=== PATIENT | female | born 1990 | race Caucasian/White ===

== ENCOUNTER → 2017-10-31 22:48 | Observation (INO) ==
[2017-10-31 21:59] LABS: Bilirubin,Urine Negative (Negative); Blood,Urine Small (Negative); Clarity,Urine Cloudy (Clear); Color,Urine Yellow (Yellow); Glucose,Urine (UA) Normal (Normal); Ketones,Urine Negative (Negative); Leukocyte Esterase,Urine Negative (Negative); Nitrite,Urine Negative (Negative); Protein,Urine Trace mg/dL (Neg-Trace); Specific Gravity,Urine 1.026 (1.010-1.025); Urobilinogen,Urine Normal (Normal)
[2017-10-31 22:01] LABS: Bacteria,Urine Moderate per hpf (None-Few); Hyaline Casts,Urine None Seen per lpf (None-Few); RBC,Urine 15-30 per hpf (0-3); Squamous Epithelial Cell,Urine Many per lpf (None-Few)
[2017-10-31 22:09] LABS: Amphetamine Screen,Urine Negative ng/mL (Cutoff=1000); Barbiturate Screen,Urine Negative ng/mL (Cutoff=200); Benzodiazepines Screen,Urine Negative ng/mL (Cutoff=200); Cannabinoid Screen,Urine Negative ng/mL (Cutoff = 50); Cocaine Screen,Urine Negative ng/mL (Cutoff= 300); Opiate Screen,Urine Negative ng/mL (Cutoff=300); Phencyclidine Screen,Urine Negative ng/mL (Cutoff=25)
--- NOTE | 2017-10-31 22:44 | OB/GYN Progress Note ---
Date of Encounter: 10/31/17 Time of Encounter: 22:40 - Assessment and Plan (1) Lower abdominal pain Current Visit: Yes Status: Acute Urinalysis-Mild dehydration and contaminated FHT normal for gestational age Benign exam Discussed common discomforts of related to gestation and parity. Encouraged patient to follow up with primary OB prior to next appointment if not resolved with home remedies, including but not limited to increased water intake, warm baths, maternity support belt. Discharged home with PTL precautions (2) 23 weeks gestation of Current Visit: Yes Status: Acute Subjective - Subjective Principal diagnosis: Lower abdominal pain Interval history: at 23 weeks and 4 days presents to triage with reports lower abdominal pain. Denies fever, chills and flank pain. Denies vaginal bleeding , leaking of fluid , contractions and intercourse within the past 48 hours. She is seen by Dr. Key at [place] for her care. States her last visit was yesterday and next appointment is scheduled for end of the month. Objective - Vital Signs Vital Signs: Intake and Output 10/31/17 10/31/17 10/31/17 07:59 15:59 23:59 Other: Weight 72.4 kg Patient Weight 10/31/17 23:59 Weight 72.4 kg - Exam FHR: auscultation normal (Appropriate for gestational age, FBL 150. No contractions per monitor or palpation.) Abdomen: Present: soft, gravid, tenderness (Right round ligament and superior pubic bone.) Uterus: Present: normal (Appropriate for gestational age.) - Labs Labs: Abnormal lab results Urine Clarity Cloudy (Clear) A 10/31/17 21:54 Ur Specific [place] 1.026 (1.010-1.025) H 10/31/17 21:54 Urine Blood Small (Negative) H 10/31/17 21:54 Urine Microscopic RBC 15-30 per hpf (0-3) H 10/31/17 21:54 Urine Microscopic WBC 3-5 per hpf (0-3) H 10/31/17 21:54 Ur Squamous Epith Cells Many per lpf (None-Few) H 10/31/17 21:54 Urine Bacteria Moderate per hpf (None-Few) H 10/31/17 21:54
== END | disposition home or self-care (01) ==
LOC: 1NENULAB
PROVIDERS: ADMIT Advanced Practice Midwife; ATTEND Advanced Practice Midwife

== ENCOUNTER → 2017-12-28 18:25 | Observation (INO) ==
[2017-12-28 18:02] LABS: Bilirubin,Urine Negative (Negative); Blood,Urine Negative (Negative); Color,Urine Yellow (Yellow); Glucose,Urine (UA) Normal (Normal); Ketones,Urine Negative (Negative); Leukocyte Esterase,Urine Negative (Negative); Nitrite,Urine Negative (Negative); Protein,Urine Negative (Neg-Trace); Specific Gravity,Urine 1.026 (1.010-1.025); Urobilinogen,Urine Normal (Normal)
[2017-12-28 18:03] LABS: Clarity,Urine Slightly Hazy (Clear)
[2017-12-28 18:09] LABS: Amphetamine Screen,Urine Negative ng/mL (Cutoff=1000); Barbiturate Screen,Urine Negative ng/mL (Cutoff=200); Benzodiazepines Screen,Urine Negative ng/mL (Cutoff=200); Cannabinoid Screen,Urine Negative ng/mL (Cutoff = 50); Cocaine Screen,Urine Negative ng/mL (Cutoff= 300); Opiate Screen,Urine Negative ng/mL (Cutoff=300); Phencyclidine Screen,Urine Negative ng/mL (Cutoff=25)
--- NOTE | 2017-12-28 18:23 | Discharge Summary ---
Date of Encounter: 12/28/17 Time of Encounter: 18:22 - Discharge Diagnosis (1) 31 weeks gestation of Priority: Primary Status: Acute Comments: admitted for observation (2) NST (non-stress test) reactive on surveillance Priority: Secondary Status: Acute Comments: baseline 125 bpm moderate variability +15x15 accels no decels noted. No contractions noted. CAt. 1 tracing - Discharge Medications Allergies/Adverse Reactions: 3 Allergy/AdvReac Type Severity Reaction Status Date / Time Penicillins [PCN] Allergy Hives Verified 12/28/17 18:00 Data Procedures and tests throughout hospitalization: Laboratory Tests 12/28/17 12/28/17 17:50 17:50 Urine Color Yellow Urine Clarity Slightly Hazy Urine pH 6.0 Ur Specific [place] 1.026 H Urine Protein Negative Urine Glucose (UA) Normal Urine Ketones Negative Urine Blood Negative Urine Nitrite Negative Urine Bilirubin Negative Urine Urobilinogen Normal Ur Leukocyte Esterase Negative Ur Culture Indicated? NO Urine Opiates Screen Negative Ur Barbiturates Screen Negative Ur Phencyclidine Scrn Negative Ur Amphetamines Screen Negative U Benzodiazepines Scrn Negative Urine Cocaine Screen Negative U Marijuana (THC) Screen Negative Labs on day of discharge: Labs from last 24 hours 12/28/17 12/28/17 17:50 17:50 Urine Color Yellow Urine Clarity Slightly Hazy Urine pH 6.0 Ur Specific [place] 1.026 H Urine Protein Negative Urine Glucose (UA) Normal Urine Ketones Negative Urine Blood Negative Urine Nitrite Negative Urine Bilirubin Negative Urine Urobilinogen Normal Ur Leukocyte Esterase Negative Ur Culture Indicated? NO Urine Opiates Screen Negative Ur Barbiturates Screen Negative Ur Phencyclidine Scrn Negative Ur Amphetamines Screen Negative U Benzodiazepines Scrn Negative Urine Cocaine Screen Negative U Marijuana (THC) Screen Negative Date of admission: 12/28/17 17:45 Discharging clinician: Yoselin Peguero Anticipated date of discharge: 12/28/17 - Patient Status Disposition: Home, Self-Care Condition: Good Functional capacity at discharge: independent ambulation - Discharge Instructions Follow Up With: Deanna Key DO [Non-Partnered Physician] - - Diet and Activity Activity: increase activity as tolerated Diet: regular diet Hospital Course [employer] Hospital course: Patient is a 27 y/o at 31 weeks gestation presents to labor and delivery with complaints of leaking fluid. Patient denies any VB or contractions. Patient denies any intercourse in past 24 hours. Nitrazine negative and perineum dry. Patient has not had anymore discharge. Patient denies itching, burning or odor. Time Attestation: Total time spent providing and/or coordinating discharge services: Time Spent: Less than 30 minutes Exam - Constitutional General appearance IM: A&O X 3, pleasant, answers questions appropriately - Respiratory Respiratory exam: Present: CTAB - Cardiovascular Cardiovascular exam IM: Present: RRR, +S1, +S2 - Extremities Exam Extremities exam IM: Present: full ROM, normal capillary refill, normal inspection - Other Additional findings: FHR 125 bpm moderate variability +15x15 accels no decels noted. CAt. 1 tracing. No contractions perineum dry, nitrazine negative. - VTE Reasons for not Prescribing Prophylaxis: Treatment not Indicated - Low risk for VTE
== END | disposition home or self-care (01) ==
LOC: 1NENULAB
PROVIDERS: ADMIT Advanced Practice Midwife; ATTEND Advanced Practice Midwife

== ENCOUNTER → 2018-02-03 22:38 | Observation (INO) ==
[2018-02-03 22:08] LABS: Bilirubin,Urine Negative (Negative); Blood,Urine Negative (Negative); Clarity,Urine Cloudy (Clear); Color,Urine Yellow (Yellow); Glucose,Urine (UA) 100 mg/dL (Normal); Ketones,Urine Negative (Negative); Leukocyte Esterase,Urine Negative (Negative); Nitrite,Urine Negative (Negative); Protein,Urine Negative (Neg-Trace); Specific Gravity,Urine 1.023 (1.010-1.025); Urobilinogen,Urine Normal (Normal)
[2018-02-03 22:09] LABS: Bacteria,Urine Few per hpf (None-Few); Hyaline Casts,Urine None Seen per lpf (None-Few); Squamous Epithelial Cell,Urine Many per lpf (None-Few); WBC,Urine 0-3 per hpf (0-3)
[2018-02-03 22:20] LABS: Amphetamine Screen,Urine Negative ng/mL (Cutoff=1000); Barbiturate Screen,Urine Negative ng/mL (Cutoff=200); Benzodiazepines Screen,Urine Negative ng/mL (Cutoff=200); Cannabinoid Screen,Urine Negative ng/mL (Cutoff = 50); Cocaine Screen,Urine Negative ng/mL (Cutoff= 300); Opiate Screen,Urine Negative ng/mL (Cutoff=300); Phencyclidine Screen,Urine Negative ng/mL (Cutoff=25)
--- NOTE | 2018-02-04 07:12 | OB/GYN Progress Note ---
Date of Encounter: 02/03/18 Time of Encounter: 22:00 - Assessment and Plan (1) NST (non-stress test) reactive on surveillance Status: Acute Reactive NST (2) 37 weeks gestation of Status: Acute Assessed by nurses No cervial change in >2 hours UA contaminated NST reactive Discharge home with labor precautions Follow up in office with routine care and PRN Subjective - Subjective Principal diagnosis: Labor eval Antepartum ROS: movement normal, contractions, no new complaints, no loss of fluid, no vaginal bleeding Objective - Vital Signs Vital Signs: Intake and Output 02/03/18 02/03/18 02/04/18 15:59 23:59 07:59 Other: Weight 82.5 kg - Exam Abdomen: Present: normal appearance Uterus: Present: normal. Absent: firm, bogginess, tenderness - Labs Labs: Abnormal lab results Urine Clarity Cloudy (Clear) A 02/03/18 22:00 Urine Glucose (UA) 100 mg/dL (Normal) H 02/03/18 22:00 Urine Microscopic RBC 5-15 per hpf (0-3) H 02/03/18 22:00 Ur Squamous Epith Cells Many per lpf (None-Few) H 02/03/18 22:00
== END | disposition home or self-care (01) ==
LOC: 1NENULAB
PROVIDERS: ADMIT Advanced Practice Midwife; ATTEND Advanced Practice Midwife

== ENCOUNTER → 2018-02-05 18:30 | Observation (INO) ==
[2018-02-05 17:51] LABS: Amphetamine Screen,Urine Negative ng/mL (Cutoff=1000); Barbiturate Screen,Urine Negative ng/mL (Cutoff=200); Benzodiazepines Screen,Urine Negative ng/mL (Cutoff=200); Cannabinoid Screen,Urine Negative ng/mL (Cutoff = 50); Cocaine Screen,Urine Negative ng/mL (Cutoff= 300); Opiate Screen,Urine Negative ng/mL (Cutoff=300); Phencyclidine Screen,Urine Negative ng/mL (Cutoff=25)
--- NOTE | 2018-02-05 18:28 | OB/GYN Progress Note ---
Date of Encounter: 02/05/18 Time of Encounter: 18:23 - Assessment and Plan (1) Encounter for suspected PROM, with rupture of membranes not found Current Visit: Yes Status: Acute - nitrazine, - fern. Discharged home with labor and when to return to triage precautions (2) 37 weeks gestation of Current Visit: No Status: Acute (3) NST (non-stress test) reactive on surveillance Current Visit: No Status: Acute baseline 140 Subjective - Subjective Interval history: 37+3 weeks gestation presents to triage with complaints of rupture of membranes approximately an hour ago. Patient states she was in the bathtub she felt something pop stepped out of the bathtub and fell liquids draining down her leg noticed she had lost her mucous plug. On way here underwear has felt damp but has not wet. Reports good movement, denies vaginal bleeding or contractions Antepartum ROS: loss of fluid, movement normal, no vaginal bleeding, no contractions Objective - Vital Signs Vital Signs: Intake and Output 02/05/18 02/05/18 02/05/18 07:59 15:59 23:59 Other: Weight 81.5 kg Patient Weight 02/05/18 23:59 Weight 81.5 kg - Exam FHR: auscultation normal Abdomen: Present: soft, gravid Cervical dilation: /-2
== END | disposition home or self-care (01) ==
LOC: 1NENULAB
PROVIDERS: ADMIT Advanced Practice Midwife; ATTEND Advanced Practice Midwife